=== PATIENT | female | born 1995 | race Caucasian/White ===

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

== ENCOUNTER 2017-01-28 20:52 | Inpatient (IN) | payer MEDICAID, OTHER ==
--- NOTE | 2017-01-28 22:12 | ED ---
Psych HPI - General Chief Complaint: Psychiatric Symptoms Stated Complaint: Mental Health Time Seen by Provider: 01/28/17 21:41 Source: patient Mode of arrival: ambulatory - History of Present Illness Initial Comments: patient is a 22-year-old woman who states that over the past few days her mood has worsened and she is feeling like she is at risk of taking an overdose of medication. Complaint: suicidal ideation, feels depressed -: days(s) Associated Psychiatric Symptoms: depression, suicidal ideation History of same: Yes Quality: constant Improves With: none Worsens With: none Associated Symptoms: denies other symptoms - Related Data Home Medications Medication Instructions Recorded Confirmed Albuterol Inhaler [Ventolin Hfa 1 - 2 puff INHALATION RT-Q6H PRN 12/11/16 Inhaler] Benzonatate [Tessalon Perles] 100 mg PO TID PRN 12/11/16 01/28/17 buPROPion XL [Wellbutrin Xl] 150 mg PO DAILY 01/28/17 01/28/17 Previous Rx's Medication Instructions Recorded ARIPiprazole [Abilify] 15 mg PO DAILY #14 tab 12/25/16 Metoprolol Succinate (ER) [Toprol 50 mg PO DAILY #14 tab 12/25/16 XL] Prazosin [Minipress] 1 mg PO HS #14 cap 12/25/16 traZODone HCL [Desyrel] 50 mg PO HS #14 tab 12/25/16 Allergies Allergy/AdvReac Type Severity Reaction Status Date / Time erythromycin base Allergy Anaphylaxis Verified 01/28/17 21:38 Penicillins Allergy Anaphylaxis Verified 01/28/17 21:38 shellfish derived Allergy Anaphylaxis Verified 01/28/17 21:38 Review of Systems ROS Statement: Those systems with pertinent positive or pertinent negative responses have been documented in the HPI. ROS Other: All systems not noted in ROS Statement are negative. Constitutional: Denies: fever Respiratory: Denies: cough, dyspnea Cardiovascular: Denies: chest pain Gastrointestinal: Denies: abdominal pain, vomiting Genitourinary: Denies: dysuria Musculoskeletal: Denies: back pain Skin: Denies: rash Neurological: Denies: headache Past Medical History Past Medical History: Asthma History of Any Multi-Drug Resistant Organisms: None Reported Past Surgical History: No Surgical Hx Reported Past Anesthesia/Blood Transfusion Reactions: No Reported Reaction Past Psychological History: Anxiety, Bipolar, Depression Smoking Status: Current every day smoker Past Alcohol Use History: None Reported Past Drug Use History: None Reported - Past Family History Father Family Medical History: Diabetes Mellitus, Hyperlipidemia, Hypertension Additional Family Medical History / Comment(s): Father is alive at age 46 Mother Family Medical History: Asthma, Osteoarthritis (OA) Additional Family Medical History / Comment(s): Mother is alive at age 44 with history of myocardial infarction. Sister(s) Family Medical History: Asthma Brother(s) Family Medical History: Asthma General Exam Limitations: no limitations General appearance: alert, in no apparent distress, obese Head exam: Present: atraumatic, normocephalic Eye exam: Present: normal appearance. Absent: scleral icterus, conjunctival injection Respiratory exam: Present: normal lung sounds bilaterally. Absent: respiratory distress, wheezes, rales, rhonchi, stridor Cardiovascular Exam: Present: regular rate, normal rhythm, normal heart sounds. Absent: systolic murmur, diastolic murmur, rubs, gallop Extremities exam: Present: normal inspection, normal capillary refill. Absent: pedal edema, calf tenderness Neurological exam: Present: alert, normal gait Psychiatric exam: Present: normal affect, depressed, suicidal ideation. Absent : agitated, anxious, homicidal ideation Skin exam: Present: warm, dry, intact, normal color. Absent: rash Course Vital Signs 01/28/17 21:00 Temperature 100.2 F H Pulse Rate 100 Respiratory 20 Rate Blood Pressure 188/95 O2 Sat by Pulse 99 Oximetry Medical Decision Making - Medical Decision Making Patient is 22-year-old woman complaining of depression and suicidal ideation. She is seen by behavioral health and they state that she'll be admitted here. - Lab Data Lab Results 01/28/17 01/28/17 Range/Units 21:51 21:51 Urine HCG, Qual Not Detected (Not Detectd) Urine Opiates Screen Not Detected (NotDetected) Ur Oxycodone Screen Not Detected (NotDetected) Urine Methadone Screen Not Detected (NotDetected) Ur Propoxyphene Screen Not Detected (NotDetected) Ur Barbiturates Screen Not Detected (NotDetected) U Tricyclic Antidepress Not Detected (NotDetected) Ur Phencyclidine Scrn Not Detected (NotDetected) Ur Amphetamines Screen Not Detected (NotDetected) U Methamphetamines Scrn Not Detected (NotDetected) U Benzodiazepines Scrn Not Detected (NotDetected) Urine Cocaine Screen Not Detected (NotDetected) U Marijuana (THC) Screen Not Detected (NotDetected) Disposition Clinical Impression: Suicidal ideation, Depression, Mood disorder Disposition: ADMITTED IP TO THIS [facility] Condition: Fair Referrals: May Cota MD [Primary Care Provider] - 1-2 days
[2017-01-28] MEDS ORDERED: ACETAMINOPHEN TAB 325 MG TAB PO PRN (23:28)
[2017-01-28] MEDS ORDERED: MAGNESIUM HYDROXIDE 2,400 MG/10 ML CUP PO PRN (23:28)
[2017-01-28] MEDS ORDERED: MAG HYDROX/AL HYDROX/SIMETH 30 ML CUP PO PRN (23:28)
[2017-01-28] MEDS ORDERED: BENZONATATE 100 MG CAP PO PRN (23:31)
[2017-01-28] MEDS ORDERED: ALBUTEROL INHALER 60 PUFF/8 GM INHALER INHALATION PRN (23:31)
[2017-01-28 23:41] LABS: Appearance,Urine Clear (Clear); Bilirubin,Urine Negative (Negative); Glucose,Urine (UA) Negative (Negative); Ketones,Urine Negative (Negative); Leukocyte Esterase,Urine Negative (Negative); Nitrite,Urine Negative (Negative); Protein,Urine Negative (Negative); UA Billing (MACRO vs. MICRO) CHEM; Urobilinogen,Urine <2.0 mg/dL (<2.0)
[2017-01-29] MEDS: traZODone HCL 50 MG TAB PO SCH ×2 (00:08→20:40)
[2017-01-29 00:54] VITALS: BMI 50.9
--- NOTE | 2017-01-29 01:34 | P.MDCNMH ---
History of Present Illness H&P Date: 01/29/17 Chief Complaint: Depression, suicidal ideations Hiral Zamora is a 22yo female with history of depression, suicidal ideations , asthma and obesity who is being admitted to the mental health unit for recurrent suicidal ideations as well as new auditory hallucinations. The patient states she began having suicidal thoughts approximately 24 hours prior. She reports also having auditory hallucinations which are new. The voices she is hearing are telling her to harm herself. She has been cutting herself on her right thigh as well as her left arm to deal with her depression. She denies any recent illness or hospitalization. Reports good compliance with her outpatient psychiatric medication regimen. Denies fevers/chills, nausea, vomiting, chest pain or shortness of breath. She states she was diagnosed with asthma as a child and has a rescue inhaler which she seldom uses. Has never been hospitalized for her asthma. Review of Systems Constitutional: Patient reports no fever, no chills, no weight changes, no change in appetite Eyes: Patient reports no double vision, no visual changes ENT: Patient reports no rhinorrhea, no post nasal drip, no sore throat Cardiovascular: Patient reports no chest pain, no edema, no palpitations, no syncope, no orthopnea, no paroxysmal nocturnal dyspnea. Respiratory: Patient reports no dyspnea, no cough, no wheeze Gastrointestinal: Patient reports no nausea, no vomiting, no constipation, no diarrhea Genitourinary: Patient reports no dysuria, no urinary frequency, no hematuria. Musculoskeletal: Patient reports no unusual joint pain, no joint swelling or weakness. Patient reports no muscular pain. Psychiatric: Reports auditory hallucinations, depression, suicidal ideation. Patient reports no changes in memory. Endocrine: Patient reports no thirst, no polyuria, no cold intolerance, no heat intolerance. Neurological: Patient reports no unusual paresthesias, no seizures, no paresis , no paralysis, no facila droop, no headache. Heme/Lymphatic: Patient reports no easy bruising, no bleeding tendency, no lymphadenopathy. Allergic/ Immunologic: Patient reports no recent allergic reactions or immunologic history. Skin: Patient reports no rashes or unusual lesions. Past Medical History Past Medical History: Asthma History of Any Multi-Drug Resistant Organisms: None Reported Past Surgical History: No Surgical Hx Reported Past Anesthesia/Blood Transfusion Reactions: No Reported Reaction Past Psychological History: Anxiety, Bipolar, Depression Smoking Status: Former smoker Past Alcohol Use History: None Reported Additional Past Alcohol Use History / Comment(s): Patient is a smoker for to 5 cigarettes per day for the past 6 months. Pt. admits to smoking marijuana multiple times a day. She denies any alcohol use or any other street drug use. She is currently living home with her mom and 2 sisters. Past Drug Use History: None Reported Additional Drug Use History / Comment(s): Pt indicates that she smoked marijuana usually everyday but states she has stopped smoking as of two weeks ago - Past Family History Father Family Medical History: Diabetes Mellitus, Hyperlipidemia, Hypertension Additional Family Medical History / Comment(s): Father is alive at age 46 Mother Family Medical History: Asthma, Osteoarthritis (OA) Additional Family Medical History / Comment(s): Mother is alive at age 44 with history of myocardial infarction. Sister(s) Family Medical History: Asthma Brother(s) Family Medical History: Asthma Medications and Allergies Home Medications Medication Instructions Recorded Confirmed Type Albuterol Inhaler [Ventolin Hfa 1 - 2 puff INHALATION RT-Q6H PRN 12/11/16 History Inhaler] Benzonatate [Tessalon Perles] 100 mg PO TID PRN 12/11/16 01/29/17 History ARIPiprazole [Abilify] 15 mg PO DAILY #14 tab 12/25/16 01/29/17 Rx Metoprolol Succinate (ER) [Toprol 50 mg PO DAILY #14 tab 12/25/16 01/29/17 Rx XL] Prazosin [Minipress] 1 mg PO HS #14 cap 12/25/16 01/29/17 Rx traZODone HCL [Desyrel] 50 mg PO HS #14 tab 12/25/16 01/29/17 Rx buPROPion XL [Wellbutrin Xl] 150 mg PO DAILY 01/28/17 01/29/17 History Allergies Allergy/AdvReac Type Severity Reaction Status Date / Time erythromycin base Allergy Anaphylaxis Verified 01/29/17 00:56 Penicillins Allergy Anaphylaxis Verified 01/29/17 00:56 shellfish derived Allergy Anaphylaxis Verified 01/29/17 00:56 Physical Exam Osteopathic Statement: *. No significant issues noted on an osteopathic structural exam other than those noted in the History and Physical/Consult. Vitals: Vital Signs Temp Pulse Pulse Resp BP BP Pulse Ox 01/29/17 00:41 97.8 F 90 17 163/90 01/28/17 23:24 96.9 F L 91 18 134/65 01/28/17 21:00 100.2 F H 100 20 188/95 99 Intake and Output 01/28/17 01/28/17 01/29/17 14:59 22:59 06:59 Other: Weight 120.202 kg 134.6 kg Patient Weight 01/29/17 06:59 Weight 134.6 kg Constitutional:No acute distress, conversant, pleasant Head: Atraumatic, normocephalic Eyes: Anicteric sclerae, moist conjunctiva, no lid-lag PERRLA ENMT: oropharynx clear, no erythema, exudates Neck: Supple, Firm, no masses, or JVD, No carotid bruits, No thyromegaly Lungs: Clear to auscultation, Clear to percussion, Normal respiratory effort, no accessory muscle use Cardiovascular: Heart regular in rate and rhythm, No murmurs, gallops, or rubs, No peripheral edema Abdominal: Soft, Nontender, no guarding, rebound or rigidity, Abdomen moving with respiration, Normoactive bowel sounds, No hepatomegaly, No splenomegaly, No palpable mass , No abdominal wall hernia noted Skin: Left forearm wellhealing abrasions. Right thigh linear abrasions noted. Normal temperature, tone, texture, turgor, No induration, No subcutaneous nodules, No rash, lesions, No ulcers Extremities: No digital cyanosis, No clubbing, Pedal pulses intact and symmetrical, Radial pulses intact and symmetrical, Normal gait and station, No calf tenderness Psychiatric: Alert and oriented to person, place and time, Appropriate affect, Intact judgement Neuro: Muscles Strength 5/5 in all 4 extremities, Sensation to light touch grossly present throughout, Cranial nerves II-XII grossly intact, No focal sensory deficits Cranial Nerve Examination - Cranial Nerves Cranial Nerve II- Optic: Intact Cranial Nerve III- Oculomotor: Intact Cranial Nerve IV- Trochlear: Intact Cranial Nerve V- Trigeminal: Intact Cranial Nerve - Abducens: Intact Cranial Nerve VII- Facial: Intact Cranial Nerve VIII- Auditory: Intact Cranial Nerve IX- Glossopharyngeal: Intact Cranial Nerve X- Vagus: Intact Cranial Nerve XI- Accessory: Intact Cranial Nerve XII- Hypoglossal: Intact Assessment and Plan (1) Mood disorder Narrative/Plan: Patient reports depressive symptoms with suicidal ideations. History of self- mutilation with razor blade and noticeable scars/cuts on left forearm and right thigh. Management of psychiatric medication regimen per mental health team. Current Visit: Yes Status: Acute Code(s): F39 - UNSPECIFIED MOOD [AFFECTIVE ] DISORDER SNOMED Code(s): 32033859 (2) Suicidal ideation Narrative/Plan: Patient reports suicidal ideations x 24 hours accompanied by auditory hallucinations. Denies any attempt to commit suicide. She will be admitted to the mental health unit for close monitoring and psychiatric medication regimen adjustment. Suicide precautions will be followed per unit protocol. Current Visit: Yes Status: Acute Code(s): R45.851 - SUICIDAL IDEATIONS SNOMED Code(s): 3426502 (3) Anxiety Narrative/Plan: Anxiolytic therapy per mental health team. Patient reports taking a beta swati for her akathesia as well as insomnia. Will defer to mental health team for reinstitution of this medication. Current Visit: No Status: Acute Code(s): F41.9 - ANXIETY DISORDER, UNSPECIFIED SNOMED Code(s): 99640230 Time with Patient: Greater than 30
[2017-01-29] MEDS: ARIPiprazole 15 MG TAB PO SCH (08:15)
[2017-01-29] MEDS: buPROPion XL 150 MG TAB.ER.24H PO SCH (08:15)
[2017-01-29] MEDS ORDERED: METOPROLOL SUCCINATE (ER) 50 MG TAB.ER.24H PO SCH (09:00)
[2017-01-29 09:36] LABS: Basophils # (A) 0.1 k/uL (0-0.2); Basophils % (A) 1 %; CH 27.3; CHCM 31.4; Eosinophils # (A) 0.1 k/uL (0-0.7); Eosinophils % (A) 2 %; HCT 39.6 % (34.0-46.0); HDW 2.53; HGB 12.6 gm/dL (11.4-16.0); Hypochromasia Slight; Luc % (Auto) 1; Lymphocytes # (A) 2.4 k/uL (1.0-4.8); Lymphocytes % (A) 29 %; MCH 27.8 pg (25.0-35.0); MCHC 31.8 g/dL (31.0-37.0); MCV 87.5 fL (80.0-100.0); Mean Platelet Volume 6.5; Monocytes # (A) 0.3 k/uL (0-1.0); Monocytes % (A) 4 %; Neutrophils # (A) 5.2 k/uL (1.3-7.7); Neutrophils % (A) 64 %; RBC 4.53 m/uL (3.80-5.40); RDW 13.4 % (11.5-15.5); WBC 8.2 k/uL (4.0-11.0); WBC (Perox) 8.56
[2017-01-29 10:08] LABS: ALT 39 U/L (9-52); AST 17 U/L (14-36); Alkaline Phosphatase 87 U/L (38-126); Anion Gap 9 mmol/L; Blood Urea Nitrogen 13 mg/dL (7-17); Calcium 9.3 mg/dL (8.4-10.2); Carbon Dioxide 24 mmol/L (22-30); Chloride 106 mmol/L (98-107); Cholesterol 221 mg/dL (<200); Glucose 133 mg/dL (74-99); HDL Cholesterol 39 mg/dL (40-60); Non-African American GFR(MDRD) >60 (>60 ml/min/1.73 sqM); Potassium 4.6 mmol/L (3.5-5.1); Sodium 139 mmol/L (137-145); Total Bilirubin 0.3 mg/dL (0.2-1.3); Total Protein 6.7 g/dL (6.3-8.2)
[2017-01-29] MEDS: PRAZOSIN 1 MG CAP PO SCH (20:40)
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
[2017-01-30 06:59] VITALS: RESP 16
[2017-01-30] MEDS: ARIPiprazole 15 MG TAB PO SCH (08:06)
[2017-01-30] MEDS: METOPROLOL SUCCINATE (ER) 100 MG TAB.ER.24H PO SCH (08:06)
[2017-01-30] MEDS: buPROPion XL 150 MG TAB.ER.24H PO SCH (08:06)
[2017-01-30] MEDS: PRAZOSIN 1 MG CAP PO SCH (20:45)
[2017-01-30] MEDS: traZODone HCL 50 MG TAB PO SCH (20:45)
--- NOTE | 2017-01-31 06:48 | PN ---
PROGRESS NOTE DATE OF SERVICE: 01/30/2017 CHIEF COMPLAINT: The patient was admitted for suicidal thinking with a plan of overdose. She had 2 days of hearing voices of her father telling her to end her life. She has long-term trauma issues. INTERVAL HISTORY: The patient has been doing fairly well. She had a quiet evening last night. She slept fairly well today. She has been up and about. She attends groups. She interacts with others. She has been appropriate in the milieu. She tells me today that she is still hearing voices. She says that overall she feels a little bit better. She says that she reviewed the treatment issues with Dr. Elizondo and was in agreement with the treatment plan. She feels that overall her medications have been helpful. She was able to tell me specifically what medications she is on. She said she understood from Dr. Elizondo that it might take a little while for her voices to settle down and they may be more related to psychosocial issues than something that needs to be addressed with medication. She was comfortable based on his guidance with continuing her medications the same. She has not had change in her general health. She tolerates her psychotropic medications. MENTAL STATUS: The patient gave fairly good eye contact. Psychomotor activity was a little restless. Her speech was clear. She was spontaneous and interactive. Her affect was a little constricted. Her mood was even. She did appear to be significantly distressed. There was no indication of thought disorder. ASSESSMENT: I will continue the current diagnosis and treatment plan. Continue psychotropic medications the same. The patient seems to be making a fair adjustment to the unit. We will continue to focus on stabilization and discharge planning. [email or web address] / IJN: [id number] /
[2017-01-31] MEDS: ARIPiprazole 15 MG TAB PO SCH (08:39)
[2017-01-31] MEDS: buPROPion XL 150 MG TAB.ER.24H PO SCH (08:39)
[2017-01-31] MEDS: METOPROLOL SUCCINATE (ER) 100 MG TAB.ER.24H PO SCH (08:39)
[2017-01-31] MEDS: PRAZOSIN 1 MG CAP PO SCH (20:38)
[2017-01-31] MEDS: traZODone HCL 50 MG TAB PO SCH (20:38)
--- NOTE | 2017-01-31 20:45 | PN ---
PROGRESS NOTE DATE OF SERVICE: 01/31/2017. CHIEF COMPLAINT: The patient was admitted for suicidal thinking with a plan of overdose. She had 2 days of hearing voices of her father telling her to end her life. She has long-term trauma issues. INTERVAL HISTORY: The patient has been doing fairly well. She had a quiet evening last night. She slept well. Today she has been out and about. She comes out in the day area. She interacts with others. She attends groups. In general she has been functioning fairly well. She has a improved outlook. She feels that she has been making progress and agrees with the treatment plan that Dr. Elizondo has initiated. She has not had change in her general health. She tolerates psychotropic medications. MENTAL STATUS: The patient gave fair eye contact. Psychomotor activity was a little slowed. Speech was appropriate. Her affect was in the reasonable range. She smiled a little. Her mood was quiet, though not down or depressed. She did not appear to be distressed. ASSESSMENT: I will continue the current diagnosis and treatment plan. I will continue psychotropic medications the same. The patient appears to be making progress. We will continue to focus on stabilization and discharge planning. MMODL / IJN: [id number] /
[2017-02-01 07:07] VITALS: TEMP 97.8
[2017-02-01] MEDS: ARIPiprazole 15 MG TAB PO SCH (08:34)
[2017-02-01] MEDS: buPROPion XL 150 MG TAB.ER.24H PO SCH (08:34)
[2017-02-01] MEDS: METOPROLOL SUCCINATE (ER) 100 MG TAB.ER.24H PO SCH (08:35)
[2017-02-01 10:07] VITALS: BP 116/65; PULSE 115
--- NOTE | 2017-02-28 17:39 | P.DS ---
Providers Date of admission: 01/28/17 23:23 Expected date of discharge: 03/03/17 Attending physician: Iraj Elizondo DO Consults: 01/28/17 23:28 Consult Physician Routine Consulting Provider: Mateus Iqbal Consult Reason/Comments: follow up H & P Do you want consulting provider notified?: Yes Primary care physician: May Cota - Discharge Diagnosis(es) (1) Posttraumatic stress disorder Status: Acute (2) Cluster B personality disorder Status: Acute (3) Depression Status: Acute Hospital Course: HOSPITAL COURSE: * Legal status at discharge: Voluntary * Compliant with medications: Yes * Reported adverse side effects: Yes, akathisia with Abilify, resolved with Toprol-XL * Required restraints/seclusion: No * Emergency Medication administered: No * Attended group, recreational, activity therapies: Consistently Patient is 22-year-old female with a history of multiple past admissions who presented to the ED with chief complaint of suicidal ideation with plan to overdose. Patient reported a few days ago she woke up with a voice inside her head that she describes as a malignant thought that wont go away of her father telling her to end her life or do some other self-harming behavior. This thought has since occurred daily almost all day long and is distressful. The thought attenuates when patient is busy or in the company of others. Patient initially could not identify any precipitating factors but towards middle of interview reported that she had a recent birthday and is now 22 years old. She reports no contact from her biological father who she believes has shunned her. She reports wanting to write him a letter to let him know how she feels but being unable to complete such. Patient reported that she did during this hospital course and stated she felt much better afterwards. She was uncertain if she would send it, but she did feel some closure. AHs have attenuated significantly at time of discharge. Also during this hospital course patient was noted to have severe akathisia secondary to Abilify and was started on Toprol-XL which was titrated up 100 mg by mouth every morning. This caused near total resolution patient's feeling of restlessness and she reported significant benefits to anxiety and inability to sleep at night. SW: family meeting held via phone with pt's mom Saumya, as she works 12 hour days today and tomorrow. She believes pt is ready for dc. She has spoke to her several times and feels she has her "convinced to stop hanging out with the people she calls friends who are really bad influences". Per mom, pt is capable of taking the bus home, adding "I gave her bus fare and a house morales." Pt will f/ u with [facility] and DBT has been recommended if not already set up. Pt has medicaid to cover rx and aftercare. MENTAL STATUS EXAM: Appearance: alert, well groomed, appears stated age, steady gait, morbidly obese Behavior: psychomotor agitation+++, mild residual akathisia, fair eye contact Attitude: cooperative Speech: normal rate, rhythm, fluency, articulation, volume, and prosody; primary language: Albanian Mood: mildly anxious Affect: congruent, reactive Thought processes: linear Thought content: patient does not appear to be responding to internal stimuli ; patient denies auditory and visual hallucinations, no delusions appreciated Insight: limited improving Judgment: limited improving Cognitive: oriented to all 3 spheres, average intelligence Patient Condition at Discharge: Fair Plan - Discharge Summary New Discharge Prescriptions: New ARIPiprazole [Abilify] 15 mg PO DAILY #14 tab buPROPion XL [Wellbutrin XL] 150 mg PO DAILY #14 tab.er.24h Metoprolol Succinate (ER) [Toprol XL] 100 mg PO DAILY #14 tab.er.24h Prazosin [Minipress] 1 mg PO HS #14 cap traZODone HCL [Desyrel] 50 mg PO HS #14 tab Continue Benzonatate [Tessalon Perles] 100 mg PO TID PRN PRN Reason: Cough Albuterol Inhaler [Ventolin Hfa Inhaler] 1 - 2 puff INHALATION RT-Q6H PRN PRN Reason: Shortness Of Breath Discontinued ARIPiprazole [Abilify] 15 mg PO DAILY #14 tab Metoprolol Succinate (ER) [Toprol XL] 50 mg PO DAILY #14 tab Prazosin [Minipress] 1 mg PO HS #14 cap traZODone HCL [Desyrel] 50 mg PO HS #14 tab buPROPion XL [Wellbutrin Xl] 150 mg PO DAILY Discharge Medication List Albuterol Inhaler [Ventolin Hfa Inhaler] 1 - 2 puff INHALATION RT-Q6H PRN [History] Benzonatate [Tessalon Perles] 100 mg PO TID PRN 12/11/16 [History] ARIPiprazole [Abilify] 15 mg PO DAILY #14 tab 02/01/17 [Rx] Metoprolol Succinate (ER) [Toprol XL] 100 mg PO DAILY #14 tab.er.24h 02/01/17 [ Rx] Prazosin [Minipress] 1 mg PO HS #14 cap 02/01/17 [Rx] buPROPion XL [Wellbutrin XL] 150 mg PO DAILY #14 tab.er.24h 02/01/17 [Rx] traZODone HCL [Desyrel] 50 mg PO HS #14 tab 02/01/17 [Rx] Follow up Appointment(s)/Referral(s): [facility] [Outside] - 02/16/17 1:30 pm (02-16-17 @ 1:[address] Jolly 02-22-17. @ 10:00 with Tung Thakur ) May Cota MD [Primary Care Provider] - 02/09/17 9:30 am (Appointment scheduled at the [facility] located on the grounds of [facility]. Per psychiatrist, follow up with PCP for a sleep study. [facility] [phone]) Patient Instructions/Handouts: Depression (GEN), Suicide Prevention for Adults (GEN) Activity/Diet/Wound Care/Special Instructions: Activity and diet as tolerated. Avoid the use of street drugs and alcohol. Take all medications as prescribed. When you are in need of refills on your medications please contact your medical provider and/or outpatient psychiatrist to have this done. Please go to scheduled outpatient appointment for aftercare treatment. If symptoms return or become worse call the crisis line at [phone] and/or go to the nearest emergency room for an evaluation. Discharge Disposition: HOME SELF-CARE
== END 2017-02-01 15:44 | disposition home or self-care (01) | DRG 755 ==
LOC: EC 20:52 → 3MHU 23:23
PROVIDERS: ADMIT Psychiatry & Neurology Psychiatry; ATTEND Psychiatry & Neurology Psychiatry
DX: F43.10 Post-traumatic stress disorder, unspecified (principal); R45.851 Suicidal ideations; F32.9 Major depressive disorder, single episode, unspecified; F60.89 Other specific personality disorders; F12.90 Cannabis use, unspecified, uncomplicated; F17.200 Nicotine dependence, unspecified, uncomplicated; J45.909 Unspecified asthma, uncomplicated; Z65.3 Problems related to other legal circumstances; Z79.899 Other long term (current) drug therapy; Z82.49 Family history of ischemic heart disease and other diseases of the circulatory system; Z82.5 Family history of asthma and other chronic lower respiratory diseases; Z83.3 Family history of diabetes mellitus; Z88.1 Allergy status to other antibiotic agents; Z88.0 Allergy status to penicillin; Z91.013 Allergy to seafood
CPT/HCPCS: 80053; 80061; 80306; 81003; 81025; 82075; 83036; 84443; 85025; 99285

== ENCOUNTER 2018-02-24 16:56 | Inpatient (IN) | payer MEDICAID, OTHER ==
[2018-02-24] MEDS ORDERED: DIPH,PERTUS(ACELL)TETVAC-LF 0.5 ML VIAL IM ONE (17:21)
[2018-02-24] MEDS ORDERED: LIDOCAINE 1%-EPI 1:100,000 20 ML VIAL SQ STA (17:48)
--- NOTE | 2018-02-24 17:52 | ED ---
General Adult HPI - General Chief complaint: Psychiatric Symptoms Stated complaint: Mental health Source: patient Mode of arrival: ambulatory Limitations: no limitations - History of Present Illness Initial comments: Dictation was produced using [employer] dictation software. please excuse any grammatical, word or spelling errors. Chief Complaint: 23-year-old female past medical history of suicidal ideation and suicidal attempt presents with suicidal attempt. History of Present Illness: States that her motions took over today. At approximately 3 PM she didn't decided to cut her left wrist and right upper extremity. Skin is isn't told her mom. EMS was called and she is brought to the emergency department. Patient chart review shows that she has had suicidal attempts in the past. The ROS documented in this emergency department record has been reviewed and confirmed by me. Those systems with pertinent positive or negative responses have been documented in the HPI. All other systems are other negative and/or noncontributory. - Related Data Home Medications Medication Instructions Recorded Confirmed Acetaminophen Tab [Tylenol Tab] 650 mg PO Q6H PRN 02/24/18 02/24/18 Acetaminophen/Pamabrom [Midol 1 - 2 tab PO Q6H PRN 02/24/18 02/24/18 Caplet] Calcium Carbonate [Tums] 500 - 1,000 mg PO QID PRN 02/24/18 02/24/18 Melatonin 10 mg PO HS PRN 02/24/18 02/24/18 Allergies Allergy/AdvReac Type Severity Reaction Status Date / Time erythromycin base Allergy Anaphylaxis Verified 02/24/18 17:11 Penicillins Allergy Anaphylaxis Verified 02/24/18 17:11 shellfish derived Allergy Anaphylaxis Verified 02/24/18 17:11 Review of Systems ROS Statement: Those systems with pertinent positive or pertinent negative responses have been documented in the HPI. ROS Other: All systems not noted in ROS Statement are negative. Past Medical History Past Medical History: Asthma History of Any Multi-Drug Resistant Organisms: None Reported Past Surgical History: No Surgical Hx Reported Past Anesthesia/Blood Transfusion Reactions: No Reported Reaction Past Psychological History: Anxiety, Bipolar, Depression Smoking Status: Current every day smoker Past Alcohol Use History: Rare Past Drug Use History: Marijuana - Past Family History Father Family Medical History: Diabetes Mellitus, Hyperlipidemia, Hypertension Additional Family Medical History / Comment(s): Father is alive at age 46 Mother Family Medical History: Asthma, Osteoarthritis (OA) Additional Family Medical History / Comment(s): Mother is alive at age 44 with history of myocardial infarction. Sister(s) Family Medical History: Asthma Brother(s) Family Medical History: Asthma General Exam - General Exam Comments Initial Comments: PHYSICAL EXAM: General Impression: Alert and oriented x3, not in acute distress HEENT: Normocephalic atraumatic, extra-ocular movements intact, pupils equal and reactive to light bilaterally, mucous membranes moist. Cardiovascular: Heart regular rate and rhythm, S1&S2 audible, no murmurs, rubs or gallops Chest: Lungs clear to auscultation bilaterally, no rhonchi, no wheeze, no rales Abdomen: Bowel sounds present, abdomen soft, non-tender, non-distended, no organomegaly Musculoskeletal: Pulses present and equal in all extremities, no peripheral edema Motor: Power 5/5 bilaterally, no focal deficits noted Neurological: CN II-XII grossly intact, no focal motor or sensory deficits noted Skin: 2 cm laceration with exposed fat of the left anterior distal forearm, superficial abrasions to the right anterior hip Psych: Tearful Limitations: no limitations Course Vital Signs 02/24/18 17:00 Temperature 97.9 F Pulse Rate 110 H Respiratory 20 Rate Blood Pressure 128/85 O2 Sat by Pulse 98 Oximetry Procedures - Laceration Laceration #1 Consent Obtained: verbal consent Time Out Performed: No Indication: laceration Site: other Description: linear Depth: simple, single layer Anesthetic Used: lidocaine 1% Anesthesia Technique: local infiltration Type of Sutures: nylon Size of Sutures: 5-0 Number of Sutures: 3 Technique: simple, interrupted Patient Tolerated Procedure: well Medical Decision Making - Medical Decision Making ED course: 23-year-old male presents with suicidal attempt. Vital signs upon arrival shows heart rate of 110, worse vital signs within normal limits laceration was repaired at bedside using simple interrupted sutures. Patient evaluated by EPS. She'll be admitted to inpatient psychiatry. Advised that sutures should be removed in 7-10 days. - Lab Data Lab Results 02/24/18 02/24/18 Range/Units 18:20 18:20 Urine HCG, Qual Not Detected (Not Detectd) Urine Opiates Screen Not Detected (NotDetected) Ur Oxycodone Screen Not Detected (NotDetected) Urine Methadone Screen Not Detected (NotDetected) Ur Propoxyphene Screen Not Detected (NotDetected) Ur Barbiturates Screen Not Detected (NotDetected) U Tricyclic Antidepress Not Detected (NotDetected) Ur Phencyclidine Scrn Not Detected (NotDetected) Ur Amphetamines Screen Not Detected (NotDetected) U Methamphetamines Scrn Not Detected (NotDetected) U Benzodiazepines Scrn Detected H (NotDetected) Urine Cocaine Screen Not Detected (NotDetected) U Marijuana (THC) Screen Detected H (NotDetected) Disposition Clinical Impression: Suicidal behavior Disposition: ADMITTED IP TO THIS [facility] Condition: Fair Referrals: None,Stated [Primary Care Provider] - 1-2 days Time of Disposition: 23:27 Decision Time: 23:27
[2018-02-24 18:59] LABS: Amphetamine Screen,Urine Not Detected (NotDetected); Barbiturate Screen,Urine Not Detected (NotDetected); Benzodiazepines Screen,Urine Detected (NotDetected); Cocaine Screen,Urine Not Detected (NotDetected); Methadone Screen, Urine Not Detected (NotDetected); Opiate Screen,Urine Not Detected (NotDetected); Oxycodone Screen, Urine Not Detected (NotDetected); Phencyclidine Screen,Urine Not Detected (NotDetected); Tricyclic Antidepressant,Urine Not Detected (NotDetected); Urn Cannabinoid Scrn Detected (NotDetected)
[2018-02-25] MEDS ORDERED: MAG HYDROX/AL HYDROX/SIMETH 30 ML CUP PO PRN (00:52)
[2018-02-25] MEDS ORDERED: MAGNESIUM HYDROXIDE 2,400 MG/10 ML CUP PO PRN (00:52)
[2018-02-25] MEDS ORDERED: ACETAMINOPHEN TAB 325 MG TAB PO PRN (00:52)
[2018-02-25] MEDS ORDERED: LORazepam 1 MG TAB PO PRN (00:52)
[2018-02-25] MEDS ORDERED: MELATONIN 5 MG TABLET PO PRN (00:55)
[2018-02-25] MEDS ORDERED: LORazepam 2 MG/ML INJ IM PRN (00:55)
[2018-02-25 03:41] VITALS: BMI 48.4
--- NOTE | 2018-02-25 06:47 | P.HPMEDMHU ---
History of Present Illness H&P Date: 02/25/18 Chief Complaint: Depression suicidal ideation suicide attempt The patient is a obese 23-year-old female with history of asthma, major depression and posttraumatic stress disorder who is admitted to the mental health unit after she presented to the ER by EMS. The patient reports that she's been going through a tough time increased stressors at home. She reports that of several family members including her father since November she also cites a recent breakup. Apparently yesterday the patient then proceeded to slash her left wrist and on arrival to the ER received 3 interrupted sutures to repair the laceration, the patient denies any chest pain. She does report yesterday that she had intermittent episodes of shortness of breath with difficulty moving air and associated wheezes that seemed to resolve after taking her rescue inhaler. She denies any cough, URI symptoms, subjective fevers chills or night sweats. The patient reports ongoing depressive symptomology (please refer to pHQ 9 score 16). The patient has been off any antipsychotic therapy for at least a year as she mentions that she was previously on Wellbutrin and trazodone and 2 other medications that she is unable to recall, she denies any auditory or visual hallucinations. The patient 's UDS was noted to be positive for benzodiazepines and THC Review of Systems Pertinent positives per HPI, all other review of systems otherwise negative Past Medical History Past Medical History: Asthma History of Any Multi-Drug Resistant Organisms: None Reported Past Surgical History: No Surgical Hx Reported Past Anesthesia/Blood Transfusion Reactions: No Reported Reaction Past Psychological History: Anxiety, Bipolar, Depression Additional Psychological History / Comment(s): Cutter Smoking Status: Former smoker Past Alcohol Use History: Rare Additional Past Alcohol Use History / Comment(s): Patient is a smoker for to 5 cigarettes per day for the past 6 months. Pt. admits to smoking marijuana multiple times a day. She denies any alcohol use or any other street drug use. She is currently living home with her mom and 2 sisters. Past Drug Use History: Marijuana Additional Drug Use History / Comment(s): Pt indicates that she smoked marijuana usually everyday but states she has stopped smoking as of two weeks ago - Past Family History Father Family Medical History: Diabetes Mellitus, Hyperlipidemia, Hypertension Additional Family Medical History / Comment(s): Father is alive at age 46 Mother Family Medical History: Asthma, Osteoarthritis (OA) Additional Family Medical History / Comment(s): Mother is alive at age 44 with history of myocardial infarction. Sister(s) Family Medical History: Asthma Brother(s) Family Medical History: Asthma Medications and Allergies Home Medications Medication Instructions Recorded Confirmed Type Acetaminophen Tab [Tylenol Tab] 650 mg PO Q6H PRN 02/24/18 02/25/18 History Acetaminophen/Pamabrom [Midol 1 - 2 tab PO Q6H PRN 02/24/18 02/25/18 History Caplet] Calcium Carbonate [Tums] 500 - 1,000 mg PO QID PRN 02/24/18 02/25/18 History Melatonin 10 mg PO HS PRN 02/24/18 02/25/18 History Allergies Allergy/AdvReac Type Severity Reaction Status Date / Time erythromycin base Allergy Severe Anaphylaxis Verified 02/25/18 03:16 Penicillins Allergy Severe Anaphylaxis Verified 02/25/18 03:16 shellfish derived Allergy Severe Anaphylaxis Verified 02/25/18 03:16 Physical Exam Vitals: Vital Signs Temp Pulse Pulse Resp BP BP Pulse Ox 02/25/18 03:33 98.1 F 107 H 20 122/88 02/24/18 23:52 100 19 155/91 97 02/24/18 17:00 97.9 F 110 H 20 128/85 98 Intake and Output 02/24/18 02/24/18 02/25/18 14:59 22:59 06:59 Other: Weight 127.006 kg 127.913 kg Constitutional: No acute distress, conversant, pleasant Eyes: Anicteric sclerae, moist conjunctiva, no lid-lag, PERRLA ENMT: NC/AT,Oropharynx clear, no erythema, exudates Neck:Supple, FROM, no masses, or JVD, No carotid bruits; No thyromegaly Lungs: Clear to auscultation, Clear to percussion, Normal respiratory effort, no accessory muscle use Cardiovascular: Heart regular in rate and rhythm, No murmurs, gallops, or rubs no peripheral edema Abdominal: Soft Nontender, nom distended, no guarding, no rebound or rigidity, Normoactive bowel sounds No hepatomegaly, No splenomegaly, No palpable mass No abdominal wall hernia noted Skin: Left wrist laceration repair appears to be healing well, also several abrasions in the area of the left wrist Extremities:No digital cyanosis No clubbing, Pedal pulses intact and symmetrical Radial pulses intact and symmetrical Normal gait and station, No calf tenderness Psychiatric: Alert and oriented to person, flat affect, PHQ 9 score 16 Neuro: Muscles Strength 5/5 in all 4 extremities, Sensation to light touch grossly present throughout, Cranial nerves II-XII grossly intact. No focal sensory deficits Cranial Nerve Examination - Cranial Nerves Cranial Nerve II- Optic: Intact Cranial Nerve III- Oculomotor: Intact Cranial Nerve IV- Trochlear: Intact Cranial Nerve V- Trigeminal: Intact Cranial Nerve - Abducens: Intact Cranial Nerve VII- Facial: Intact Cranial Nerve VIII- Auditory: Intact Cranial Nerve IX- Glossopharyngeal: Intact Cranial Nerve X- Vagus: Intact Cranial Nerve XI- Accessory: Intact Cranial Nerve XII- Hypoglossal: Intact Results Labs: Abnormal Lab Results - Last 24 Hours (Table) 02/24/18 Range/Units 18:20 U Benzodiazepines Scrn Detected H (NotDetected) U Marijuana (THC) Screen Detected H (NotDetected) Thrombosis Risk Factor Assmnt - Choose All That Apply Any of the Below Risk Factors Present?: No Other Risk Factors: No Other congenital or acquired thrombophilia - If yes, enter type in comment: No Thrombosis Risk Factor Assessment Level: Very Low Risk Assessment and Plan (1) Asthma Current Visit: Yes Status: Acute Code(s): J45.909 - UNSPECIFIED ASTHMA, UNCOMPLICATED SNOMED Code(s): 736774983 (2) Suicidal behavior Current Visit: Yes Status: Acute Code(s): R46.89 - OTHER SYMPTOMS AND SIGNS INVOLVING APPEARANCE AND BEHAVIOR SNOMED Code(s): 533034026 (3) Depression Current Visit: No Status: Acute Code(s): F32.9 - MAJOR DEPRESSIVE DISORDER, SINGLE EPISODE, UNSPECIFIED SNOMED Code(s): 90444152 (4) Posttraumatic stress disorder Current Visit: No Status: Acute Code(s): F43.10 - POST-TRAUMATIC STRESS DISORDER, UNSPECIFIED SNOMED Code(s): 25730744 (5) Marijuana abuse Current Visit: Yes Status: Acute Code(s): F12.10 - CANNABIS ABUSE, UNCOMPLICATED SNOMED Code(s): 65737874 Plan: The patient is admitted to the mental health unit we'll defer to the acute inpatient psychiatry team regarding ongoing psychotropic medications and cognitive behavioral therapy. Medically speaking the patient has a history of asthma of unknown type, seems to have had a mild exacerbation yesterday likely attributed to stress but is now resolved. Patient had laceration repair in the ER that appears to be healing well. We will plan to sign off on the patient pending review of a.m. labs. We'll continue to monitor clinical course. I appreciate this opportunity. Involved in the ongoing care of this patient. For further questions please to take to contact the [facility]
[2018-02-25 09:18] LABS: Basophils # (A) 0.1 k/uL (0-0.2); Basophils % (A) 1 %; Eosinophils # (A) 0.2 k/uL (0-0.7); Eosinophils % (A) 2 %; HCT 38.7 % (34.0-46.0); HGB 12.3 gm/dL (11.4-16.0); Lymphocytes # (A) 2.4 k/uL (1.0-4.8); Lymphocytes % (A) 29 %; MCH 26.7 pg (25.0-35.0); MCHC 31.7 g/dL (31.0-37.0); MCV 84.5 fL (80.0-100.0); Monocytes # (A) 0.3 k/uL (0-1.0); Monocytes % (A) 4 %; Neutrophils % (A) 62 %; Platelet Count 442 k/uL (150-450); RBC 4.59 m/uL (3.80-5.40); RDW 13.7 % (11.5-15.5)
[2018-02-25 09:38] LABS: ALT 35 U/L (9-52); AST 23 U/L (14-36); Albumin 4.1 g/dL (3.5-5.0); Alkaline Phosphatase 75 U/L (38-126); Anion Gap 10 mmol/L; Blood Urea Nitrogen 11 mg/dL (7-17); Calcium 9.6 mg/dL (8.4-10.2); Carbon Dioxide 27 mmol/L (22-30); Chloride 105 mmol/L (98-107); Glucose 153 mg/dL (74-99); Potassium 4.4 mmol/L (3.5-5.1); Sodium 142 mmol/L (137-145); Total Bilirubin 0.7 mg/dL (0.2-1.3); Total Protein 7.4 g/dL (6.3-8.2)
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
[2018-02-25] MEDS: SERTRALINE 50 MG TAB PO SCH (12:11)
[2018-02-26 07:03] VITALS: RESP 16
--- NOTE | 2018-02-26 08:08 | P.PN ---
Progress Note - Text Interval history: The patient is found in the hallway she follows me to an interview room. She reports that her mood has been good. She slept last night staff reported she slept 6 hours. Appetite is been stable. She anticipates family and friend visit this evening. She has no questions regarding her psychotropic medication. She endorses no suicidal thoughts. She states that she chronically has self-injurious thoughts but feels that those are controllable. She has been attending groups. Mental status exam: The patient is alert she is dressed in her own clothing hygiene grooming adequate. Eye contact is appropriate speech is fluent spontaneous nonpressured. She is reporting no acute suicidal ideation intent or plan. She is endorsing no auditory or visual hallucinations or any specific delusions. She demonstrates no verbal or physical aggressiveness. Affect is euthymic. Insight and judgment improving. Plan: The patient will continue on her current medication. We will continue monitoring her for safety. She will continue participating in groups throughout the day. Vital signs reviewed. She may be appropriate for discharge Wednesday depending on her clinical progress.
[2018-02-26] MEDS: SERTRALINE 50 MG TAB PO SCH (08:53)
[2018-02-27] MEDS: SERTRALINE 50 MG TAB PO SCH (08:42)
--- NOTE | 2018-02-27 09:15 | P.PN ---
Progress Note - Text Interval history: The patient is found in group she follows me to an interview room. She indicates her mood is good. Sleep has been stable appetite is stable. She has been participating in groups throughout the day. She had a phone call with her mother and that went well. She is describing no side effects from the Zoloft we discussed titrating the dose further and she is agreeable. She reports having no suicidal thoughts for the last 2 days she states that she had no thoughts of cutting yesterday. Mental status exam: The patient is an overweight female appearing her stated age. She is dressed in her own clothing. She has several facial piercings as previously noted. She indicates her mood is good affect is euthymic in appearance and congruent to reported mood. She is reporting no suicidal ideation intent or plan. She is currently reporting no loss of cutting. No homicidal ideation intent or plan. She is endorsing no auditory or visual hallucinations or any specific delusions. There is no tangential thinking loose associations or flight of ideas. She remains oriented to person place and date. Plan: The patient will continue on her current medication we will titrate the Zoloft 200 mg starting tomorrow. I anticipate discharging her tomorrow if she is sufficiently stabilized. Vital signs reviewed.
[2018-02-28 07:03] VITALS: BP 126/79; PULSE 78; TEMP 97.9
[2018-02-28] MEDS ORDERED: SERTRALINE 100 MG TAB PO SCH (09:00)
--- NOTE | 2018-02-28 10:55 | P.DS ---
Providers Date of admission: 02/24/18 23:32 Expected date of discharge: 02/28/18 Attending physician: Leandro Pastrana Consults: 02/25/18 00:52 Consult Physician Routine Consulting Provider: Reece Kraft Consult Reason/Comments: Medical management Do you want consulting provider notified?: Yes, Notify in am Primary care physician: Stated None - Discharge Diagnosis(es) (1) Major depressive disorder, recurrent severe without psychotic features Current Visit: Yes Status: Acute Priority: High (2) PTSD (post-traumatic stress disorder) Current Visit: Yes Status: Acute Priority: Medium (3) Cannabis use disorder, mild, abuse Current Visit: Yes Status: Acute Priority: Medium Hospital Course: Brief summary of admission note: The patient is a 23-year-old single female who was admitted to the mental health unit through the emergency room with worsening symptoms of depression and recent self-injurious behavior. The patient had cut herself on her distal left anterior wrist which required 3 sutures. She reported a long history of self-injurious behavior in the form of cutting since age 13. She states that has been occurring more frequently lately. She stated that it was not an attempt to kill herself but she just cut deeper than she planned. She reported enduring several losses over the past several months including a recent breakup with a boyfriend her father unexpectedly and an uncle as well. She described some hopelessness thinking and suicidal ideation. For full details please refer to my psychiatric evaluation dated 02/25/2018. Summary of hospital course: The patient was admitted to the mental health unit she signed in voluntarily. We reviewed her presenting symptoms and treatment options. We decided to initiate Zoloft for depressive and anxiety symptoms and the dose was titrated 200 mg during the hospitalization. The patient was pleasant cooperative she attended groups. She demonstrated no agitated behavior. She reported a progressive improvement of symptoms while here and a resolution of any suicidal ideation. She verbalizes that she needs to discontinue the cutting behavior and has been working on ideas for other coping strategies. She was seen by internal medicine for routine history and physical exam. washtub worker met with her to complete a psychosocial assessment and begin discharge planning. A family meeting was held this morning involving social work and the patient's mother. The patient's mother indicated that she was comfortable with the patient returning home. The patient states that she will continue to follow up with outpatient mental health services. Mental status exam: The patient is an overweight female appearing her stated age she seated calmly in the chair. She has several facial piercings involving her lower lip and her nose. She does have portions of her hair dyed pink or purple. Eye contact is appropriate speech is fluent and spontaneous nonpressured. She reports her mood is good she is endorsing no suicidal or homicidal ideation intent or plan. She reports no auditory or visual hallucinations or any specific delusions. There is no observed evidence of psychosis. She does not appear hypomanic or manic. There is no evidence of tangential thinking loose associations or flight of ideas. Insight and judgment grossly intact. She is oriented to person place and date. Affect is appropriately expresses. Impressions 1. Major depressive disorder recurrent severe without psychosis, posttraumatic stress disorder, cannabis use disorder 2. Cluster B traits 3. Asthma Plan: The patient will be discharged mental health unit today she will return home residing with her mother and sister. The patient will continue on Zoloft 100 mg daily. Social work will arrange for outpatient mental health follow-up appointment. The patient demonstrates no imminent safety risk she is appropriate for transition outpatient care. She is instructed to return to the hospital with any acute safety concerns. Patient Condition at Discharge: Stable Plan - Discharge Summary Discharge Rx Participant: No New Discharge Prescriptions: New Sertraline [Zoloft] 100 mg PO DAILY #30 tab Continue Calcium Carbonate [Tums] 500 - 1,000 mg PO QID PRN PRN Reason: Heartburn Melatonin 10 mg PO HS PRN PRN Reason: Insomnia Discontinued Acetaminophen Tab [Tylenol Tab] 650 mg PO Q6H PRN PRN Reason: Fever And/ Or Pain Acetaminophen/Pamabrom [Midol Caplet] 1 - 2 tab PO Q6H PRN PRN Reason: Menstrual Cramps Discharge Medication List Calcium Carbonate [Tums] 500 - 1,000 mg PO QID PRN 02/24/18 [History] Melatonin 10 mg PO HS PRN 02/24/18 [History] Sertraline [Zoloft] 100 mg PO DAILY #30 tab 02/28/18 [Rx] Follow up Appointment(s)/Referral(s): None,Stated [Primary Care Provider] - 1-2 days
== END 2018-02-28 14:45 | disposition home or self-care (01) | DRG 885 ==
LOC: EC 16:56 → 3MHU 23:32
PROVIDERS: ADMIT Psychiatry & Neurology Psychiatry; ATTEND Psychiatry & Neurology Psychiatry
DX: F33.2 Major depressive disorder, recurrent severe without psychotic features (principal); Z68.42 Body mass index [BMI] 45.0-49.9, adult; E66.3 Overweight; F12.10 Cannabis abuse, uncomplicated; F17.210 Nicotine dependence, cigarettes, uncomplicated; F43.10 Post-traumatic stress disorder, unspecified; J45.909 Unspecified asthma, uncomplicated; S61.512A Laceration without foreign body of left wrist, initial encounter; X78.1XXA Intentional self-harm by knife, initial encounter; Z62.810 Personal history of physical and sexual abuse in childhood; Z79.899 Other long term (current) drug therapy; Z81.8 Family history of other mental and behavioral disorders; Z82.49 Family history of ischemic heart disease and other diseases of the circulatory system; Z82.5 Family history of asthma and other chronic lower respiratory diseases; Z83.3 Family history of diabetes mellitus; Z91.5 Personal history of self-harm; Z82.61 Family history of arthritis; Z56.0 Unemployment, unspecified; Z63.4 Disappearance and death of family member; Z91.19 Patient's noncompliance with other medical treatment and regimen; Z88.0 Allergy status to penicillin; Z88.1 Allergy status to other antibiotic agents; Z91.013 Allergy to seafood
CPT/HCPCS: 12001; 80053; 80306; 81025; 84443; 85025; 99285